=== PATIENT | male | born 1975 | race Caucasian/White ===

== ENCOUNTER 2017-08-18 06:54 | Day surgery (SDC) | payer BC ==
--- NOTE | 2017-08-16 16:34 | RAD REPORT ---
EXAM DESCRIPTION: RADOP - Outpt Chest Pa/Lat (2 Views) - 08/16/2017 4:22 pm CLINICAL HISTORY: Preop chest, hypertension COMPARISON: None. TECHNIQUE: PA and lateral views of the chest were obtained. FINDINGS: The lungs are clear. Heart size is normal and central vasculature is within normal limits . No pleural effusion or pneumothorax seen. No acute bony finding noted. No acute aortic finding. IMPRESSION: No acute cardiopulmonary process.
--- NOTE | 2017-08-16 16:39 | EKG ---
Test Date: 2017-08-16 Test Time: 14:58:10 Chain Mender: REGGIE MEASUREMENT RESULTS: Intervals: Rate: 76 AR: 132 QRSD: 80 QT: 380 QTc: 427 [place]: P: 37 AR: 132 QRS: 46 T: 20 INTERPRETIVE STATEMENTS: Normal sinus rhythm Normal ECG No previous ECG available for comparison Electronically Signed On 08-16-17 16:38:26 CDT by Ulises Sunshine
[2017-08-16 16:45] LABS: Absolute Lymphocytes (CBC) 2.6 K/uL (0.7-4.9); Absolute Monocytes 0.5 K/uL (0.1-1.3); Absolute Neutrophil 4.3 K/uL (1.8-8.0); Basophils % 0.8 % (0-1.3); Eosinophils % 3.2 % (0-4.4); Hematocrit 46.8 % (39.6-49.0); Lymphocytes % 33.4 % (15.3-44.8); MCH 27.6 pg (27.0-35.0); MCV 81.2 fL (80-100); MPV 8.8 fL (7.6-11.3); Monocytes % 6.9 % (3.3-12.3); RBC Red Blood Cell Count 5.76 M/uL (4.33-5.43)
[2017-08-16 16:59] LABS: Potassium 4.2 mEq/L (3.6-5.0)
[2017-08-18] MEDS ORDERED: BUPIVACAINE 0.5% PF 10 ML VIAL ONE (07:33)
[2017-08-18] MEDS ORDERED: CEFAZOLIN/SWI 1gm 1 GM/10 ML SYR ONE (07:35)
[2017-08-18] MEDS ORDERED: PROPOFOL 200 MG/20 ML VIAL IV ONE (07:37)
[2017-08-18] MEDS ORDERED: MIDAZOLAM HCL 2 MG/2 ML INJ ONE (07:37)
[2017-08-18] MEDS ORDERED: FENTANYL CITR 100 MCG/2 ML ONE (07:38)
[2017-08-18] MEDS ORDERED: ONDANSETRON 4 MG/2 ML VIAL ONE (07:38)
[2017-08-18] MEDS ORDERED: LIDOCAINE 2% MPF 5 ML VIAL ONE (07:38)
[2017-08-18] MEDS: Ringers Lactate 1,000 ML IV ONE (07:52)
[2017-08-18] MEDS ORDERED: HYDROCODONE/APAP 5/325 MG TAB ONE (10:07)
--- NOTE | 2017-08-30 12:47 | P.BOP ---
Preoperative diagnosis: perianal pain, bulging, BRBPR with BM Postoperative diagnosis: same Primary procedure: 1. Fistulectomy, 2. Examination under anesthesia, 3. Anoscopy Secondary procedure: 4. 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 Anesthesia: General Complications: None Drain(s): Other (surgicell) Transferred to: Recovery Room Condition: Good
--- NOTE | 2017-08-30 23:11 | OP ---
Date of Procedure: 08/18/2017 Surgeon: Isai Connors MD Preoperative Diagnosis: Perianal pain, bulging, bright red blood per rectum with bowel movement. Postoperative Diagnosis: Perianal pain, bulging, bright red blood per rectum with bowel movement. Procedures: 1.Anorectal fistulotomy. 2.Examination under anesthesia. 3.Anoscopy. 4.Rigid proctoscopy. Specimen: Anal fistula biopsy. 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 Anesthesia: General plus local. Packing: Surgicel. Indications: This is a case of a 41-year-old patient, who came to us with perianal pain and tenderne ss. Said when he has a bowel movement, it becomes very tender and also bulging out. The was told he had some hemorrhoids before and so he was sent to us for possible hemorrhoidectomy. We fully explai chun to the patient, we might find more than one pathology which includes fistulas, hemorrhoids, cance r, fissures, and some other pathology in that area. So, we going to do examination under anesthesia, anoscopy, proctoscopy, possible hemorrhoidectomy, possible fistulectomy, with benefits, alternatives , and risks including, but not limited to infection, bleeding, damage to adjacent structures, anesthe clemencia complication, recurrence, anal stricture, anal incontinence, VT, and even . He also underst ands this may not relieve any symptoms. He might need more than one surgical intervention, especiall y after any biopsy we can take. He understands the importance also of avoiding constipation and also losing some weight. It was explained to him in details. He signed a consent. Description Of Procedure: The patient was brought to the operating room, placed in supine position. Anesthesia was done without complication. The patient was placed in lithotomy position with proper protection. Anal exam was done. The area was prepped and draped in a sterile fashion. Carefully, stephanie zendejas introduced the rigid proctoscope under direct visualization and advanced after insufflation in the center of the lumen without assistance. We went up to about 15 cm. We did not see any proximal mass es that can show any evidence of any bleeding. We noted there was patient has what looks like a fist clementina with an ulceration in the distal rectum right near the anal line. The scope was carefully remove d. After that I proceeded to place a Hill-Kumar retractor exposing the anal crypts. We noticed t he patient had a superficial fistula and we just followed that and cannulated that fistula and we fou nd the external opening to pass through and going to that ulceration that we see in the area of the d istal rectum at the level of the connection to the anal region. We protected the muscle at this time . It looked like the muscle was not involved, so we proceeded to use a frozen knife because we wante d to take a biopsy of the tract and also the ulcer. We took those biopsies of the ulcer and the trac t. After that we used a cauterizer to obliterate the space. Sphincter was protected at all times. The tract was removed. The area was irrigated. We approximated some of the anoderm with a 3-0 chrom ic. The patient tolerated the procedure well. Local anesthetic was previously applied over the area . The patient was sent to recovery in stable condition after putting some Surgicel over the area. T he patient tolerated the procedure well. The patient was sent to recovery in stable condition. DISCHARGE SUMMARY Diagnosis: Perianal pain, bulging, bright red blood per rectum with bowel movement and also a fistul a with distal rectal ulcer. Procedures: Fistulectomy with biopsy of the ulcer and the tract with examination under anesthesia, a noscopy, proctoscopy. Disposition: Home. Activity: As tolerated. No heavy lifting. Discharge Plan: Follow up in my office in 1 week. Call for appointment at [phone]. Patient advise d to use sitz baths 3 times a day and after every bowel movement. Medications: See orders. SHARI/ERICKSON Voice ID: [id number] Report ID: [id number]
== END 2017-08-18 10:35 | disposition home or self-care (01) ==
LOC: OR 06:54
PROVIDERS: ATTEND Surgery
PROC: 0DBP0ZZ Excision of Rectum, Open Approach (ICD-10-PCS; 2017-08-18)
PROC: 0DJD8ZZ Inspection of Lower Intestinal Tract, Via Natural or Artificial Opening Endoscopic (ICD-10-PCS; principal; 2017-08-18 08:15)
DX: K60.5 Anorectal fistula (principal); Z83.3 Family history of diabetes mellitus; Z82.49 Family history of ischemic heart disease and other diseases of the circulatory system
CPT/HCPCS: 36415; 71046; 80048; 85025; 88305; 93005; J0690; J2250; J2405; J3010

== ENCOUNTER 2018-09-07 20:11 | Emergency (ER) | payer BC, OTHER ==
--- NOTE | 2018-09-07 21:06 | RAD REPORT ---
EXAM DESCRIPTION: Ethan Gutierrez (2 Views)09/07/2018 9:00 pm CLINICAL HISTORY: Chest pain COMPARISON: August 2017 FINDINGS: The lungs appear clear of acute infiltrate. The heart is normal size IMPRESSION: No acute abnormalities displayed
[2018-09-07] MEDS ORDERED: LIDOCAINE VISCOUS 2% SOLN 15 ML UDC ONE (22:28)
[2018-09-07] MEDS ORDERED: MAGNE/ALUM HYDROXD 30 ML UCUP ONE (22:28)
[2018-09-07] MEDS ORDERED: FAMOTIDINE 20 MG/2 ML VIAL IV ONE (22:28)
[2018-09-07] MEDS ORDERED: NA CHLORIDE 0.9% 1,000 ML ONE (22:28)
[2018-09-07 22:41] LABS: Absolute Lymphocytes (CBC) 1.7 K/uL (0.7-4.9); Absolute Monocytes 0.4 K/uL (0.1-1.3); Absolute Neutrophil 3.7 K/uL (1.8-8.0); Basophils % 0.6 % (0-1.3); Eosinophils % 2.2 % (0-4.4); Hematocrit 42.5 % (39.6-49.0); Lymphocytes % 28.1 % (15.3-44.8); MPV 9.6 fL (7.6-11.3); Monocytes % 7.4 % (3.3-12.3); RBC Red Blood Cell Count 5.03 M/uL (4.33-5.43)
[2018-09-07 22:59] LABS: Protime INR 1.05
[2018-09-07 23:04] LABS: ALT/SGPT 30 U/L (12-78); AST/SGOT 21 U/L (15-37); Alkaline Phosphatase 124 U/L (45-117); BUN Blood Urea Nitrogen 11 mg/dL (7-18); Bicarbonate 30 mmol/L (21-32); Bilirubin Direct 0.1 mg/dL (0-0.2); Bilirubin Total 0.3 mg/dL (0.2-1.0); Glucose Level 100 mg/dL (74-106); Lipase 468 U/L (73-393); Magnesium 1.9 mg/dL (1.8-2.4); Potassium 3.9 mmol/L (3.5-5.1); Protein, Total 6.8 g/dL (6.4-8.2); Sodium Level 144 mmol/L (136-145); Troponin (Emerg Dept Use Only) < 0.02 ng/mL (0.0-0.045)
--- NOTE | 2018-09-08 02:12 | ER ---
Nurse's Notes [facility] Name: Mike Brandt Age: 42 yrs Sex: Male : 1975 Arrival Date: 09/07/2018 Time: 20:14 Bed 30 Private MD: Diagnosis: Other chest pain;Epigastric pain Presentation: 09/07 20:15 Presenting complaint: Patient states: "I've been doing a lot of moving furniture a jd3 couple of weeks ago and today my pain turned to a harp chest pain that ray and travels down my left arm. I have family history of heart attacks and I was worried. I am also having dizzy spells today.". Transition of care: patient was not received from another setting of care. Onset of symptoms was September 07, 2018. Risk Assessment: Do you want to hurt yourself or someone else? Patient reports no desire to harm self or others. Initial Sepsis Screen: Does the patient meet any 2 criteria? No. Patient's initial sepsis screen is negative. Does the patient have a suspected source of infection? No. Patient's initial sepsis screen is negative. Care prior to arrival: None. 20:15 Method Of Arrival: Ambulatory jd3 20:15 Acuity: CLEMENTINA 3 jd3 Historical: - Allergies: 20:17 No Known Allergies; jd3 - Home Meds: 20:17 None [Active]; jd3 - PMHx: 20:17 None; jd3 - PSHx: 20:17 wisdom teeth; jd3 - Immunization history:: Adult Immunizations up to date. - Social history:: Smoking status: Patient/guardian denies using tobacco. - Ebola Screening: : Patient negative for fever greater than or equal to 101.5 degrees Fahrenheit, and additional compatible Ebola Virus Disease symptoms. Screenin:59 Abuse screen: Denies threats or abuse. Denies injuries from another. Nutritional rv screening: No deficits noted. Tuberculosis screening: No symptoms or risk factors identified. Fall Risk None identified. Assessment: 21:57 General: Appears in no apparent distress. comfortable, Behavior is calm, cooperative. rv Pain: Complains of pain in epigastric area Pain currently is 4 out of 10 on a pain scale. at worst was 8 out of 10 on a pain scale. Neuro: Level of Consciousness is awake, alert, obeys commands, Oriented to person, place, time, situation. Cardiovascular: Capillary refill < 3 seconds. Respiratory: Airway is patent. GI: No signs and/or symptoms were reported involving the gastrointestinal system. : No signs and/or symptoms were reported regarding the genitourinary system. EENT: No signs and/or symptoms were reported regarding the EENT system. Derm: Skin is intact. Vital Signs: 20:17 BP 123 / 70; Pulse 59; Resp 17 S; Temp 97.5(TE); Pulse Ox 99% on R/A; Weight 89.36 kg jd3 (R); Height 5 ft. 8 in. (172.72 cm) (R); Pain 5/10; 22:01 BP 100 / 57 LA Supine; Pulse 62; Resp 16 S; Pulse Ox 98% on R/A; rv 22:30 BP 121 / 70 RA; Pulse 61; Resp 16 S; Pulse Ox 99% on R/A; rv 23:00 BP 112 / 65 RA Supine; Pulse 58; Resp 16 S; Pulse Ox 98% on R/A; rv 0404 00:00 BP 110 / 69 RA; Pulse 56; Resp 16 S; Pulse Ox 100% on R/A; rv 01:00 BP 108 / 76 RA Supine; Pulse 61; Resp 17 S; Pulse Ox 100% on R/A; rv 01:30 BP 120 / 85 RA Supine; Pulse 63; Resp 16 S; Pulse Ox 100% on R/A; rv 04/03 20:17 Body Mass Index 29.95 (89.36 kg, 172.72 cm) jd3 ED Course: 09/07 20:14 Patient arrived in ED. am2 20:16 Triage completed. jd3 20:19 Arm band placed on Patient notified of wait time. EKG completed in triage. Results jd3 shown to MD. 21:01 Chest Pa And Lat (2 Views) XRAY In Process Unspecified. EDMS 21:54 Gareth Matias PA is PHCP. cp 21:54 Winston Edwards MD is Attending Physician. cp 21:59 Patient has correct armband on for positive identification. Bed in low position. Call rv light in reach. Side rails up X 1. Adult w/ patient. Pulse ox on. NIBP on. 22:30 Inserted saline lock: 22 gauge in left antecubital area, using aseptic technique. Blood rv collected. 04 00:13 CT completed. Patient tolerated procedure well. Patient moved to CT via wheelchair. Patient moved back from CT. 00:18 CT Abd/Pelvis - W/Contrast: no oral contrast In Process Unspecified. EDMS 01:58 No provider procedures requiring assistance completed. rv 02:32 IV discontinued, bleeding controlled, No redness/swelling at site. Pressure dressing rv applied. Administered Medications: 09/07 22:15 Drug: GI Cocktail without - (Maalox Suspension 30 ml, Lidocaine Liquid 2 % 15 rv ml) Route: PO; 09/08 00:02 Follow up: Response: Pain is decreased rv 09/07 22:30 Drug: NS 0.9% 1000 ml Route: IV; Rate: 1 bolus; Site: left antecubital; rv 09/08 00:02 Follow up: IV Status: Completed infusion rv 09/07 22:35 Drug: Pepcid 20 mg Route: IVP; Site: left antecubital; rv 09/08 00:02 Follow up: Response: Pain is decreased rv Outcome: 02:12 Discharge ordered by MD. cp 02:31 Discharged to home ambulatory. rv 02:31 Condition: good 02:31 Discharge instructions given to patient, Instructed on discharge instructions, follow up and referral plans. medication usage, Demonstrated understanding of instructions, follow-up care, medications, Prescriptions given X 1. 02:32 Patient left the ED. rv Signatures: Dispatcher [employer] EDMS Melvin Rosenthal Gareth Matias PA PA cp Moreno, Amanda am2 Best Soto RN RN jd3 Kraig Armstrong RN RN rv
--- NOTE | 2018-09-08 02:13 | EDPHYS ---
Physician Documentation [facility] Name: Mike Brandt Age: 42 yrs Sex: Male : 1975 Arrival Date: 09/07/2018 Time: 20:14 Bed 30 Private MD: ED Physician Winston Edwards HPI: 09/07 22:08 This 42 yrs old Male presents to ER via Ambulatory with complaints of Chest cp Pain and epigastric pain. 22:08 The patient presents with abdominal pain in the upper abdomen. cp 22:08 Onset: The symptoms/episode began/occurred last week, and became worse today. cp Associated signs and symptoms: Pertinent positives: chest pain, with radiation to left arm. The symptoms are described as waxing/waning. Severity of pain: in the emergency department the pain has improved. Patient reports he was helping move some heavy furniture and thinks this may have caused abdominal pain. Patient reports history of 2 benign abdominal masses that are being followed by his doctor. Is scheduled for CT of abdomen this week for reevaluation of abdominal masses. Historical: - Allergies: 20:17 No Known Allergies; jd3 - Home Meds: 20:17 None [Active]; jd3 - PMHx: 20:17 None; jd3 - PSHx: 20:17 wisdom teeth; jd3 - Immunization history:: Adult Immunizations up to date. - Social history:: Smoking status: Patient/guardian denies using tobacco. - Ebola Screening: : Patient negative for fever greater than or equal to 101.5 degrees Fahrenheit, and additional compatible Ebola Virus Disease symptoms. ROS: 22:20 Constitutional: Negative for body aches, chills, fever, poor PO intake. cp 22:20 Eyes: Negative for injury, pain, redness, and discharge. cp 22:20 ENT: Negative for drainage from ear(s), ear pain, sore throat, difficulty swallowing, difficulty handling secretions. 22:20 Cardiovascular: Positive for chest pain, Negative for edema, palpitations. 22:20 Respiratory: Negative for cough, shortness of breath, wheezing. 22:20 Abdomen/GI: Positive for abdominal pain, of the epigastric area, right upper quadrant and left upper quadrant, Negative for vomiting, diarrhea, constipation, anorexia, dysphagia, black/tarry stool, rectal bleeding. 22:20 Back: Negative for pain at rest, pain with movement, radiated pain. 22:20 : Negative for urinary symptoms. 22:20 Skin: Negative for cellulitis, rash. 22:20 Neuro: Negative for altered mental status, headache, weakness. 22:20 All other systems are negative. Exam: 22:08 ECG was reviewed by the Attending Physician. cp 22:25 Constitutional: The patient appears in no acute distress, alert, awake, cp non-diaphoretic, non-toxic, well developed, well nourished. 22:25 Head/Face: Normocephalic, atraumatic. Eyes: Pupils equal round and reactive to light, cp extra-ocular motions intact. Lids and lashes normal. Conjunctiva and sclera are non-icteric and not injected. Cornea within normal limits. Periorbital areas with no swelling, redness, or edema. ENT: Nares patent. No nasal discharge, no septal abnormalities noted. Tympanic membranes are normal and external auditory canals are clear. Oropharynx with no redness, swelling, or masses, exudates, or evidence of obstruction, uvula midline. Mucous membranes moist. Chest/axilla: Normal chest wall appearance and motion. Nontender with no deformity. No lesions are appreciated. 22:25 Cardiovascular: Rate: normal, Rhythm: regular, Heart sounds: murmur, not appreciated, Edema: is not appreciated, JVD: is not appreciated. 22:25 Respiratory: the patient does not display signs of respiratory distress, Respirations: normal, no use of accessory muscles, no retractions, no splinting, no tachypnea, labored breathing, is not present, Breath sounds: are clear throughout, no decreased breath sounds, no stridor, no wheezing. 22:25 Abdomen/GI: Inspection: abdomen appears normal, Bowel sounds: active, all quadrants, Palpation: soft, in all quadrants, mild abdominal tenderness, in the epigastric area, right upper quadrant and left upper quadrant, rebound tenderness, is not appreciated, involuntary guarding, is not appreciated. 22:25 Back: pain, is absent, ROM is normal. 22:25 Skin: cellulitis, is not appreciated, no rash present. Vital Signs: 20:17 BP 123 / 70; Pulse 59; Resp 17 S; Temp 97.5(TE); Pulse Ox 99% on R/A; Weight 89.36 kg jd3 (R); Height 5 ft. 8 in. (172.72 cm) (R); Pain 5/10; 22:01 BP 100 / 57 LA Supine; Pulse 62; Resp 16 S; Pulse Ox 98% on R/A; rv 22:30 BP 121 / 70 RA; Pulse 61; Resp 16 S; Pulse Ox 99% on R/A; rv 23:00 BP 112 / 65 RA Supine; Pulse 58; Resp 16 S; Pulse Ox 98% on R/A; rv 09/08 00:00 BP 110 / 69 RA; Pulse 56; Resp 16 S; Pulse Ox 100% on R/A; rv 01:00 BP 108 / 76 RA Supine; Pulse 61; Resp 17 S; Pulse Ox 100% on R/A; rv 01:30 BP 120 / 85 RA Supine; Pulse 63; Resp 16 S; Pulse Ox 100% on R/A; rv 09/07 20:17 Body Mass Index 29.95 (89.36 kg, 172.72 cm) jd3 MDM: 09/07 21:54 Patient medically screened. cp 09/08 02:10 Data reviewed: vital signs, nurses notes, lab test result(s), radiologic studies, CT cp scan, and as a result, I will discharge patient. 02:10 Counseling: I had a detailed discussion with the patient and/or guardian regarding: the cp historical points, exam findings, and any diagnostic results supporting the discharge/admit diagnosis, lab results, radiology results, to return to the emergency department if symptoms worsen or persist or if there are any questions or concerns that arise at home. Response to treatment: the patient's symptoms have markedly improved after treatment, and as a result, I will discharge patient. Special discussion: Based on the patient's Hx, exam, and Dx evaluation, there is no indication for emergent surgery or inpatient Tx. It is understood by the patient/guardian that if the Sx's persist or worsen they need to return immediately for re-evaluation. 09/07 22:07 Order name: Basic Metabolic Panel; Complete Time: 23:10 cp 09/07 23:10 Interpretation: Normal except: CL 108; CRE 1.45; GFR 54. cp 09/07 22:07 Order name: CBC with Diff; Complete Time: 23:10 cp 09/07 23:10 Interpretation: Normal except: MCV 84.6. cp 09/07 22:07 Order name: LFT's; Complete Time: 23:10 cp 09/07 22:07 Order name: Magnesium; Complete Time: 23:10 cp 09/07 22:07 Order name: PT-INR; Complete Time: 23:10 cp 09/07 22:07 Order name: Troponin (emerg Dept Use Only); Complete Time: 23:10 cp 09/07 20:30 Order name: EKG; Complete Time: 20:31 snw 09/07 20:30 Order name: Chest Pa And Lat (2 Views) XRAY; Complete Time: 21:38 snw 09/07 22:07 Order name: Lipase; Complete Time: 23:10 cp 09/08 01:48 Interpretation: Abnormal: LIP 468. cp 09/07 23:11 Order name: CT Abd/Pelvis - W/Contrast: no oral contrast cp 09/07 20:30 Order name: EKG - Nurse/Tech; Complete Time: 21:51 snw 09/07 22:07 Order name: Cardiac monitoring; Complete Time: 22:38 cp 09/07 22:07 Order name: IV Saline Lock; Complete Time: 22:38 cp 09/07 22:07 Order name: Labs collected and sent; Complete Time: 22:38 cp 09/07 22:07 Order name: O2 Per Protocol; Complete Time: 22:38 cp 09/07 22:07 Order name: O2 Sat Monitoring; Complete Time: 22:38 cp 09/08 01:47 Order name: PO challenge; Complete Time: 01:56 cp EC/03 22:08 Rate is 63 beats/min. Rhythm is regular. ND interval is normal. QRS interval is normal. cp QT interval is normal. T waves are Inverted in lead III. Interpreted by me. Reviewed by me. Administered Medications: 22:15 Drug: GI Cocktail without - (Maalox Suspension 30 ml, Lidocaine Liquid 2 % 15 rv ml) Route: PO; 09/08 00:02 Follow up: Response: Pain is decreased rv 09/07 22:30 Drug: NS 0.9% 1000 ml Route: IV; Rate: 1 bolus; Site: left antecubital; rv 09/08 00:02 Follow up: IV Status: Completed infusion rv 09/07 22:35 Drug: Pepcid 20 mg Route: IVP; Site: left antecubital; rv 09/08 00:02 Follow up: Response: Pain is decreased rv Disposition: 09/08/18 02:12 Discharged to Home. Impression: Other chest pain, Epigastric pain. - Condition is Stable. - Discharge Instructions: Abdominal Pain, Adult, Nonspecific Chest Pain, Aspirin and Your Heart. - Prescriptions for Protonix 40 mg Oral Tablet, Delayed Release (E.C.) - take 1 tablet by ORAL route once daily for 10 days; 10 tablet. - Medication Reconciliation Form, Thank You Letter, Antibiotic Education, Prescription Opioid Use form. - Follow up: Private Physician; When: 2 - 3 days; Reason: Recheck today's complaints. - Problem is new. - Symptoms have improved. Addendum: 09/09/2018 11:40 Co-signature as Attending Physician, Winston Edwards MD I agree with the assessment and w a plan of care. Signatures: Dispatcher [employer] [facility] Kellie Aranda, BUDDY-C SUPERVISING DEPUTY-Csnw Gareth Matias PA PA cp Winston Edwards MD MD wa Davies, Jonathon RN RN jKraig Graves RN RN rv Corrections: (The following items were deleted from the chart) 09/07 22:19 22:17 Chest Single View+RAD.RAD.BRZ ordered. [facility] 09/08 02:32 02:12 09/08/2018 02:12 Discharged to Home. Impression: Other chest pain; Epigastric rv pain. Condition is Stable. Forms are Medication Reconciliation Form, Thank You Letter, Antibiotic Education, Prescription Opioid Use. Follow up: Private Physician; When: 2 - 3 days; Reason: Recheck today's complaints. Problem is new. Symptoms have improved. cp
--- NOTE | 2018-09-08 10:54 | RAD REPORT ---
EXAM DESCRIPTION: CT - Abdomen Pelvis W Contrast - 09/08/2018 5:33 am CLINICAL HISTORY: Epigastric pain. COMPARISON: None. TECHNIQUE: Axial [address] imaging of the abdomen and pelvis performed utilizing intravenous contrast. Reformatted coronal and sagittal images reviewed. A dose reduction technique was utilized with automated exposure control according to patient size. FINDINGS: LOWER THORAX: Clear lung bases. Heart is normal in size. No pericardial fluid. ABDOMEN: LIVER/GALLBLADDER: Normal liver size and contour. There is a dystrophic calcification within the lef t lobe consistent with granuloma. Mild periportal edema. Normal gallbladder. No biliary dilatation. SPLEEN/PANCREAS: Spleen is enlarged to 15 cm. No perisplenic fluid. Normal pancreas. KIDNEYS/ADRENAL GLANDS: Normal adrenal glands. Normal right and left kidney. RETROPERITONEAL VESSELS/NODES: Abdominal aorta and inferior vena cava are normal in caliber. Mesente roseann vessels appear unremarkable. No lymphadenopathy. BOWEL: Normal stomach. Small bowel caliber is diffusely normal. Normal appendix in the right lower q uadrant. Normal colon. MESENTERY/PERITONEUM: There is a 9.3 x 8.6 x 10.0 cm fat density mass within the right abdominal ome ntum. There is an adjacent medial 8.8 x 7.1 x 5.5 cm peripherally calcified mildly heterogeneous raven d mass without fatty components which is either abutting or is arising from the medial side of the fa t density mass. No ascites. No mesenteric or omental edema. PELVIS: BLADDER: Unremarkable bladder GENITAL ORGANS: Normal prostate. PERITONEUM: No pelvic free fluid or adenopathy. Prominent fat along the left spermatic cord. BONES AND SOFT TISSUES: Normal lumbosacral alignment. Vertebral body and intervertebral disc space h eight are within normal limits. Mild L4-5 diffuse disc bulge. Intact bony pelvis. IMPRESSION: 1. No acute inflammatory finding within the abdomen or pelvis. 2. Mild splenomegaly. No varices. 3. Minimal periportal edema. This is nonspecific but can be seen with rapid intravenous hydration. 4. Lobular 9.3 cm fat density mass within the right abdominal omentum with an adjacent abutting versu s solid component 6.9 cm mass with peripheral calcifications. Primary consideration of the solid mass is sequela of omental infarction. This could also represent infarction of the medial aspect of a lar concepción lipoma. 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 5. Mild L4-5 diffuse disc bulge. Electronically signed by: Nadine Johnson DO 09/08/2018 12:33 AM CDT Due to temporary technical issues with the PACS/Fluency reporting system, reports are being signed by the in house radiologist as a courtesy to ensure prompt reporting. The interpreting radiologist is f ully responsible for the content of the report.
== END 2018-09-08 02:32 | disposition home or self-care (01) ==
LOC: ER 20:11
DX: R07.89 Other chest pain (principal)
CPT/HCPCS: 36415; 71046; 74177; 80048; 80076; 83690; 83735; 84484; 85025; 85610; 93005; 96361; 96374; 99284; J7030; Q9967